=== PATIENT | female | born 1960 | race Two or more races ===

== ENCOUNTER 2025-03-13 08:45 | Inpatient (IN) | payer OTHER ==
[~2025-03-13] VITALS: Ht 149.9 cm; Wt 61.7 kg
[~2025-03-13 08:45] MED LIST: IMODIUM A-D2 MG PO; PEPCID40 MG PO; ZOFRAN4 MG PO
[2025-03-13] MEDS ORDERED: COZAAR100 MG PO (09:50)
--- NOTE | 2025-03-13 09:55 | NUR ---
SE RECIBE PACIENTE ALERTA Y ORIENTADA X3. LA MISMA REFIERE TENER SEBASTIAN CELULITIS EN LA MANO DERECHA [place] DE CHRIS TENIDO CONTACTO CON PLANTAS EL SABADO. SE OBSERVA EL AREA ENROJECIDA Y EDEMATOSA. SE MIDEN S/V Y SE UBICA EN PASILLO.
[2025-03-13] MEDS ORDERED: PIPERACILLIN/TAZOBACTAM SODIUM 3.375 GM VIAL IV ONE ×2 (10:15→20:49)
[2025-03-13] MEDS ORDERED: SODIUM HYPOCHLORITE 1OZ TOP SCH (10:49)
--- NOTE | 2025-03-13 11:35 | NUR ---
SE ORIENTA A PACIENTE SOBRE TX MEDICO Y EL MISMO REFIERE ENTENDER Y ACEPTAR ALEXSANDRA. SE PROCEDE A NADIA MUESTRAS DE LABORATORIO Y CANALIZACION BAJO MEDIDAS ASEPTICAS. SE REALIZA LIMPIEZA Y CUIDADO EN EL AREA AFECTADA BAJO MEDIDAS ASEPTICAS.
[2025-03-13 11:40] LABS: BASO % 0.3 % (0.1-1.2); EOS # 0.14 (0.04-0.54); EOS % 1.5 % (0.7-7.0); HEMATOCRIT 42.1 % (34.1-44.9); HEMOGLOBIN 14.4 g/dL (11.2-15.7); LYMPH # 2.25 (1.18-3.74); LYMPH % 24.7 % (19.3-53.1); MEAN CORPUSCULAR HEMOGLOBIN 29.9 pg (25.6-32.2); MONO # 0.74 (0.24-0.82); MONO % 8.1 % (4.7-12.5); NEUT # 5.93 (1.56-6.13); NEUT % 65.1 % (34.0-71.1); PLATELET COUNT 226 K/uL (163-369); RED BLOOD COUNT 4.81 M/uL (3.93-5.22); RED CELL DISTRIBUTION WIDTH 13.2 % (11.6-14.4)
[2025-03-13 12:00] LABS: PH,URINE 5.5 (5.0-8.0); URINE APPEARANCE Clear; URINE BILIRRUBIN Negative (NEGATIVE); URINE BLOOD Moderate; URINE COLOR Yellow; URINE GLUCOSE Negative (NEGATIVE); URINE KETONE Negative (NEGATIVE); URINE LEUKOCYTE Trace; URINE NITRATE Negative; URINE PROTEIN 30 (NEGATIVE); URINE UROBILINOGEN 0.2 E.U./dl
[2025-03-13 12:05] LABS: URINE BACTERIA 2205.5 uL (0.0-1933); URINE EPITHELIAL CELLS 82.9 uL (0.0-38.8); URINE RBC 139.7 uL (0.0-20.8); URINE WBC 24.8 uL (0.0-23.2)
[2025-03-13 12:41] LABS: URINE CAST 0.44 uL (0.0-1.40)
[2025-03-13 13:11] LABS: CALCIUM 8.6 mg/dL (8.5-10.1); CREATININE SERUM 0.59 mg/dL (0.55-1.02); GFR 102.62; POTASSIUM 3.87 mEq/L (3.5-5.1)
[2025-03-13] MEDS ORDERED: PIPERACILLIN/TAZOBACTAM SODIUM 3.375 GM in DEXTROSE 5 % IN WATER 100 ML IV SCH (18:23)
[2025-03-13] MEDS ORDERED: FAMOTIDINE/PF 20 MG in 0.9 % SODIUM CHLORIDE 8 ML IV PUSH SCH (18:24)
[2025-03-13] MEDS ORDERED: SODIUM CHLORIDE 0.45 % 1,000 ML IV SCH (18:30)
[2025-03-13] MEDS ORDERED: KETOROLAC TROMETHAMINE 15 MG VIAL IU PRN (18:30)
[2025-03-13] MEDS ORDERED: ACETAMINOPHEN 500 MG GEL..CAP PO PRN (18:30)
[2025-03-13] MEDS ORDERED: FAMOTIDINE/PF 20 MG/2 ML VIAL ONE (20:49)
[2025-03-13 21:49] LABS: COVID-19 AG NEGATIVE (NEGATIVE)
[2025-03-13 21:52] LABS: INR 0.96; PARTIAL THROMBOPLASTIN TIME 28.5 SECONDS (22.0-34.0); PROTHROMBIN TIME 10.5 SECONDS (9.0-11.5)
[2025-03-14 05:17] VITALS: O2SAT 98
[2025-03-14] MEDS ORDERED: KETOROLAC TROMETHAMINE 30 MG VIAL IV PRN (07:45)
[2025-03-14 08:58] VITALS: BP 135/80; O2SAT 94
[2025-03-14] MEDS ORDERED: ENOXAPARIN SODIUM 40 MG/0.4 ML SYRINGE SUBCUTANEO SCH (09:00)
[2025-03-14] MEDS ORDERED: LOSARTAN POTASSIUM 100 MG TABLET PO SCH (09:00)
[2025-03-14] MEDS ORDERED: CEFAZOLIN SODIUM 2,000 MG in 0.9 % SODIUM CHLORIDE 100 ML IV SCH (17:00)
[2025-03-14 17:23] VITALS: BP 151/85
[2025-03-15 02:46] VITALS: BP 168/100; O2SAT 95
[2025-03-15] MEDS ORDERED: BUTALB/ACETAMINOPHEN/CAFFEINE 1 TAB TABLET PO PRN (09:15)
[2025-03-15 10:21] LABS: BASO % 0.5 % (0.1-1.2); EOS # 0.18 (0.04-0.54); EOS % 2.1 % (0.7-7.0); HEMATOCRIT 44.9 % (34.1-44.9); HEMOGLOBIN 15.2 g/dL (11.2-15.7); LYMPH # 2.83 (1.18-3.74); LYMPH % 33.1 % (19.3-53.1); MEAN CORPUSCULAR HEMOGLOBIN 29.1 pg (25.6-32.2); MONO # 0.67 (0.24-0.82); MONO % 7.8 % (4.7-12.5); NEUT # 4.81 (1.56-6.13); NEUT % 56.1 % (34.0-71.1); PLATELET COUNT 261 K/uL (163-369); RED BLOOD COUNT 5.23 M/uL (3.93-5.22); RED CELL DISTRIBUTION WIDTH 12.9 % (11.6-14.4)
[2025-03-15 10:35] LABS: ALBUMIN 3.4 gm/dL (3.4-5.0); BILIRUBIN TOTAL 0.29 mg/dL (0.3-1.2); CALCIUM 8.9 mg/dL (8.5-10.1); CREATININE SERUM 0.65 mg/dL (0.55-1.02); GFR 91.76; GLOBULINA 3.4 G/DL (2.4-3.5); MAGNESIUM 1.9 mg/dL (1.8-2.4); PHOSPHOROUS 3.1 mg/dL (2.5-4.9); POTASSIUM 4.01 mEq/L (3.5-5.1); TOTAL PROTEIN 6.8 gm/dL (6.4-8.2)
[2025-03-15 10:44] LABS: C-REACTIVE PROTEIN 1.45 MG/DL (0.00-0.29)
[2025-03-15] MEDS ORDERED: ENALAPRILAT DIHYDRATE 1.25 MG/ML VIAL IV PRN (11:00)
[2025-03-15] MEDS ORDERED: VANCOMYCIN HCL 1,000 MG VIAL IV SCH ×2 (11:09→21:00)
[2025-03-15] MEDS ORDERED: LACTOBACILLUS ACIDOPHILUS 1 CAP CAP PO SCH (17:00)
[2025-03-15] MEDS ORDERED: CHLORHEXIDINE GLUCONATE 120 ML BOTTLE TOP SCH (17:00)
[2025-03-15] MEDS ORDERED: MUPIROCIN 22 GM OINT..GM TUBE NASAL SCH (17:00)
[2025-03-15 19:00] VITALS: BP 160/80
[2025-03-15] MEDS ORDERED: FAMOtidine 20 MG TABLET PO SCH (21:00)
[2025-03-16 03:38] VITALS: BP 175/78
[2025-03-16 08:40] VITALS: BP 166/100; O2SAT 99
[2025-03-16] MEDS ORDERED: AMLODIPINE BESYLATE 2.5 MG TABLET PO SCH ×2 (09:00→17:00)
[2025-03-16 14:13] VITALS: BP 158/84
[2025-03-16 18:49] VITALS: BP 159/87; O2SAT 99
[2025-03-17] VITALS: BP 197/102; O2SAT 96
[2025-03-17 08:09] VITALS: BP 178/84; O2SAT 99
[2025-03-18] MEDS ORDERED: AMLODIPINE BESYLATE 5 MG TABLET PO SCH (09:00)
== END 2025-03-17 15:42 | disposition home or self-care (01) | DRG 603 ==
LOC: ER 08:45 → SEC-K 20:04 → MEDJ 20:04
PROVIDERS: Emergency Medicine; General Practice; Internal Medicine Infectious Disease; ADMIT Student in an Organized Health Care Education/Training Program; ATTEND Student in an Organized Health Care Education/Training Program
PROC: BP3DZZZ Magnetic Resonance Imaging (MRI) of Left Hand/Finger Joint (ICD-10-PCS; principal; 2025-03-15)
DX: L02.512 Cutaneous abscess of left hand (principal); R65.10 Systemic inflammatory response syndrome (SIRS) of non-infectious origin without acute organ dysfunction; I10 Essential (primary) hypertension; A49.02 Methicillin resistant Staphylococcus aureus infection, unspecified site
CPT/HCPCS: 73218